=== PATIENT | female | born 1955 | race Caucasian/White ===

== ENCOUNTER 2016-10-30 16:36 | Emergency (ER) | payer BC ==
--- NOTE | ~2016-10-30 | CR126 ---
[facility] A Service of [facility] RADIOLOGY TEXT RESULTS PATIENT: MAURILIO GU LOCATION: [facility] : 57 UNIT #: [id number] AGE: [address]: Yusra De La Rosa APRN SEX: F ORDER DR: [id number] [facility] [address] [place], [place] [address] [id number] MR#: [id number] Acc #: [id number] NAME: MAURILIO GU : 1955 SEX: F STUDY DATE/TIME: 10/30/2016 16:15 UNIT: [facility] ROOM: STUDY DESCRIPTION: CR Foot Complete Min 3 View Lt Attending Physician: Yusra De La Rosa A.P.R.N. Ordering Physician: Ed Doctor [id number] [facility] Primary Care Physician: Sharon Ward M.D. MEDICAL IMAGING REPORT This report is preliminary unless electronic signature is present EXAM Left foot HISTORY Pain and swelling after falling down stairs today. TECHNIQUE 3 views foot were obtained. FINDINGS The tarsal, metatarsal, and phalangeal elements are all anatomically normal in position and alignment. There are no articular defects. No fractures or radiopaque foreign bodies in the soft tissues are apparent. IMPRESSION Normal foot. Dictated by... Jhoan Chan M.D. THIS IS AN ELECTRONICALLY VERIFIED REPORT Jhoan Chan M.D. at 10/31/2016 4:55 PM RLF/alcira TD: 10/30/2016 18:53 JOB #: [id number] MEDICAL IMAGING REPORT Page 1 of 1 COPY
[~2016-10-30 16:36] MED LIST: CALCIUM 500 + D1 TAB PO; CALCIUM PO; EFFEXOR PO; LORTAB 7.5-5001 TAB PO; NASONEX17 GM; SINGULAIR PO; [UNRECOGNIZED DRUG - OTHER] PO
== END 2016-10-30 17:24 | disposition home or self-care (01) ==
LOC: CFTX 16:36
DX: S93.602A Unspecified sprain of left foot, initial encounter (principal); I10 Essential (primary) hypertension; F17.200 Nicotine dependence, unspecified, uncomplicated; Z79.899 Other long term (current) drug therapy; W18.30XA Fall on same level, unspecified, initial encounter; Y92.098 Other place in other non-institutional residence as the place of occurrence of the external cause
CPT/HCPCS: 29540; 73630; 99283